=== PATIENT | female | born 1975 | race Two or more races ===

== ENCOUNTER 2016-08-30 05:22 | Day surgery (SDC) | payer OTHER ==
[~2016-08-30 05:22] MED LIST: NORCO 5-325 TA1 EACH PO; NUCYNTA50 M1 PO; PERCOCET 5-3251 EACH PO; TAMOXIFEN CITRA10 M1 PO; ZOFRAN4 M2 PO
[2016-08-30 06:58] LABS: BASO % 0.3 % (0-2); EOS % 1.9 % (0-7); EOSINOPHIL ABSOLUTE COUNT 0.1 tho/cmm (0.0-0.7); HCT-HEMATOCRIT 36.3 % (34.0-49.0); HGB-HEMOGLOBIN 12.5 gm/dl (12.0-15.5); LYMPH % 27.7 % (20-45); MCH (MEAN CORPUSCULAR HGB) 31.7 pg (28.0-32.0); MCHC MEAN CORPUSCULAR HGB CONC 34.4 % (32.0-36.0); MCV (MEAN CELL VOLUME) 92.1 fl (82.0-96.0); MEAN PLATELET VOLUME 10.8 cmc (9.4-12.4); MONO % 10.5 % (0-12); MONOCYTE ABSOLUTE COUNT 0.8 tho/cmm (0.0-1.2); NEUTROPHIL ABSOLUTE COUNT 4.3 tho/cmm (1.6-8.0); NEUTROPHIL-AUTOMATED 4.3 tho/cmm (1.6-8.0); NEUTROPHILS % 59.6 % (40-80); PLATELET COUNT 257 tho/cmm (150-450); RED BLOOD COUNT 3.94 mil/cmm (4.00-5.20); RED CELL DISTRIBUTION WIDTH 12.6 % (12.4-16.4); WHITE BLOOD COUNT 7.3 tho/cmm (4.0-10.0)
== END 2016-08-30 09:30 ==
LOC: SRG 05:22 → SHSB 05:23 → ORW 07:18 → PACU 08:13
PROVIDERS: Plastic Surgery
PROC: 0HBU0ZZ Excision of Left Breast, Open Approach (ICD-10-PCS; principal; 2016-08-30)
PROC: 0HQUXZZ (ICD-10-PCS; 2016-08-30)
DX: N64.1 Fat necrosis of breast (principal); N60.32 Fibrosclerosis of left breast; N61.0 Mastitis without abscess; Z79.811 Long term (current) use of aromatase inhibitors; Z88.0 Allergy status to penicillin; Z88.1 Allergy status to other antibiotic agents; Z88.8 Allergy status to other drugs, medicaments and biological substances; Z91.013 Allergy to seafood; Z91.040 Latex allergy status; Z87.891 Personal history of nicotine dependence; Z90.13 Acquired absence of bilateral breasts and nipples; Z98.51 Tubal ligation status; Z98.890 Other specified postprocedural states